=== PATIENT | male | born 1965 | race Caucasian/White ===

== ENCOUNTER → 2016-12-11 | Outpatient (CLI) | payer MEDICARE, MEDICAID ==
--- NOTE | 2016-12-11 17:13 | REP ---
MRI RIGHT KNEE WITHOUT CONTRAST: HISTORY: Knee pain for several years with increasing severity. No prior MRIs for comparison. There is marked truncation and grade 3 signal change present involving the posterior horn of the medial meniscus. Similar changes are seen involving the anterior and posterior horns of the lateral meniscus. The anterior cruciate ligament is indistinct and the posterior cruciate ligament is abnormally bowed. The quadriceps and patellar tendons are intact. The medial and lateral collateral ligaments are intact. The medial and lateral patellar retinacula are intact. There is advanced thinning and irregularity of all articular cartilages with heavy tricompartmental marginal osteophytosis and evidence of tricompartmental narrowing. There is multifocal subchondral T2 hypersignal seen in both femoral and tibial components of the lateral compartment. There is advanced thinning and irregularity of the articular cartilage of the trochlear groove. There is a slight joint effusion and a 7.5 x 2.2 x 4 cm sized fluid collection seen herniating between the tendon of the medial head of the gastrocnemius muscle and the semimembranosus tendon. IMPRESSION: 1. There is maceration of the posterior horn of the medial meniscus with suspected degenerative tear of the anterior horn. 2. Degenerative tears involving both anterior and particularly posterior horns of the lateral meniscus with maceration of the posterior horn. 3. The anterior cruciate ligament is torn. 4. 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 5. Large Feldman's cyst as described above. 6. Low signal foci in the posterior knee joint, possibly representing loose interarticular bodies with possible old healed posterior fractured osteophyte formation, particularly laterally. 7. Other findings as described above. Signed by Van Lugo DO 12/11/2016 06:27 P
== END ==
LOC: M RAD 14:12
PROVIDERS: ATTEND Internal Medicine
DX: M25.562 Pain in left knee (principal); S83.512S Sprain of anterior cruciate ligament of left knee, sequela; Y92.9 Unspecified place or not applicable; Y93.9 Activity, unspecified; Y99.8 Other external cause status; X58.XXXS Exposure to other specified factors, sequela